=== PATIENT | female | born 1955 | race Caucasian/White ===

== ENCOUNTER 2022-04-27 06:14 | Day surgery (SDC) | payer OTHER, SELFPAY ==
[2022-04-27 06:45] VITALS: BP 186/72; PULSE 62; RESP 18; TEMP 36.1; O2SAT 97
[2022-04-27 06:46] VITALS: BMI 43.7
[2022-04-27] MEDS: LACTATED RINGERS 1000 ML 1,000 ML 35 ML IV (07:03)
--- NOTE | 2022-04-27 07:17 | P.GSCN_ITS ---
History of Present Illness Consult details Consult date: 04/27/22 Narrative: 66-year-old female presents for discussions of Port-A-Cath placement. Patient recently underwent a robotic assisted hysterectomy with salpingo-oophorectomy for endometrial cancer. She was found to have metastases to lymph nodes and chemotherapy was recommended. Patient presents today for discussion of Port-A-Cath placement. Patient denies any procedures on her neck. She denies any open sores or rashes. Her surgical incisions are healing well. Review of Systems Narrative: General: no fevers HENT: no problems swallowing CV: no shortness of breath Resp: no cough GI: No nausea, vomiting, abdominal pain Skin: no new rashes Musculoskeletal: no back pain Neuro: no muscle weakness Psyche: no depression, no anxiety PFSH PFSH Medical History (Updated 04/27/22 @ 07:21 by Demetris Armijo MD) Colonoscopy planned HTN (hypertension) Surgical History History of bilateral salpingo-oophorectomy History of dilation and curettage History of robot-assisted laparoscopic hysterectomy Social History (Updated 04/27/22 @ 07:20 by Demetris Armijo MD) Narrative: 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 Smoking Status: Former smoker What tobacco products do you use: cigarettes Smoking quit date/years: >15 years ago Do you use any of these nicotine containing products: None How often do you have a drink containing alcohol: monthly or less How many standard drinks containing alcohol do you have on a typical day: 1 or 2 How often do you have six or more drinks on one occasion: Never AUDIT-C Alcohol total score: 1 Non-prescribed substance use: denies use Caffeine: Yes Meds Home Medications and Allergies Home Medications Medication Instructions Recorded Confirmed Type acetaminophen 650 mg 650 mg PO Q8H PRN 04/27/22 04/27/22 History tablet,extended release lisinopril 20 mg tablet mg DAILY 04/27/22 History sulfasalazine 500 mg 1 g PO DAILY 04/27/22 04/27/22 History tablet,delayed release verapamil 120 mg 24 hr mg PO 04/27/22 History capsule,extended release Allergies Allergy/AdvReac Type Severity Reaction Status Date / Time No Known Allergies Allergy Unverified 04/27/22 06:28 Exam Narrative: Exam Narrative: General appearance: Alert, cooperative, and in no distress Neck: No surgical incisions or other scars noted in the neck. No open sores. Pulmonary: Chest symmetric, lungs clear bilaterally Cardiovascular Heart: Regular rate and rhythm, S1, S2, no murmurs/rubs/gallops Gastrointestinal Abdominal: soft, not tender, not distended, laparoscopic incisions are hea ling well with no surrounding erythema. Skin: Normal skin color, texture, and turgor. No rashes or lesions. Psychiatric: Alert, cooperative, normal affect. Const: Vital Signs, click to edit/add: Vital Signs - 24 hr 04/27/22 06:45 Temperature 97 F L Pulse Rate 62 Respiratory Rate 18 Blood Pressure 186/72 H Pulse Oximetry 97 Results Labs Labs: All other labs normal. Assessment and Plan Assessment and plan (1) Malignant neoplasm of endometrium metastatic to intra-abdominal lymph node: Status: Acute Plan 66-year-old female with metastatic endometrial cancer presents for Port-A-Cath placement. I discussed with the patient the procedure of Port-A-Cath placement. The risks of the procedure including infection, bleeding, pneumothorax, and exposure to COVID-19 were all discussed. Patient has no contraindications to this procedure today. We will proceed as scheduled.
[2022-04-27] MEDS: CEFAZOLIN 2 GM INJ IVP (07:50)
--- NOTE | 2022-04-27 07:57 | CRLHL7_ITS ---
For Patients: As a result of the Century Cures Act, medical imaging exams and procedure reports are released immediately into your electronic medical record. You may view this report before your referring provider. If you have questions, please contact your health care provider. Indication: Port placement Technique: Two fluoroscopic images of the chest. Fluoroscopic time 38.7 seconds. IMPRESSION: Fluoroscopic guidance for Port-A-Cath placement. Dictated by Jarad Blackwell MD @ 04/27/2022 9:17:21 AM (Electronically Signed)
[2022-04-27] MEDS: HEPARIN 500 UNIT/5 ML SYRINGE IVF (08:15)
[2022-04-27] MEDS: BUPIVACAINE 0.25% 30 ML INJECTION (08:15)
[2022-04-27 08:29] VITALS: BP 128/54; PULSE 58; RESP 16; TEMP 36.1; O2SAT 96
--- NOTE | 2022-04-27 08:32 | W.ANESCHARGE ---
Anesthesia Charges Start Date/Time Anesthesia Start Date: 04/27/22 Anesthesia Start Time: 07:41 Stop Date/Time Anesthesia Stop Date: 04/27/22 Anesthesia Stop Time: 08:28 Summary Emergency: No
--- NOTE | 2022-04-27 08:37 | CRLHL7_ITS ---
For Patients: As a result of the Century Cures Act, medical imaging exams and procedure reports are released immediately into your electronic medical record. You may view this report before your referring provider. If you have questions, please contact your health care provider. INDICATION: Port-A-Cath placement TECHNIQUE: Chest 1 view COMPARISON: None FINDINGS: Right internal jugular approach Port-A-Cath is present with the tip in the mid SVC. No pneumothorax. No dense consolidation. No pleural effusion. Cardiac silhouette upper limits normal. IMPRESSION: Placement of Port-A-Cath. No pneumothorax. Dictated by Jarad Blackwell MD @ 04/27/2022 9:18:16 AM (Electronically Signed)
--- NOTE | 2022-04-27 08:39 | P.GSOP_ITS ---
Operative Note Date of procedure: 04/27/22 Type of Procedure: 1. Right internal jugular Port-A-Cath placement under ultrasound and fluoroscopy guidance. Procedure Description: After discussing the risks and benefits of the procedure, the patient signed informed consent.? The operative site was marked and the patient was brought to the operating room and placed on the operating table in supine position.? Care was taken to pad the patient's pressure points.?? The patient was then sedated by anesthesia.?? The operative site was then prepped and draped in the usual sterile fashion.? A time-out was then performed. Ultrasound was brought on to the field and the right internal jugular vein was assessed. This was found to be large and easily compressible. The base of the neck directly overlying the internal jugular vein was then anesthetized with 1% lidocaine and 0.25% Marcaine mixture, and an introducer needle was inserted into the internal jugular vein using ultrasound guidance. Entry into the vein was confirmed by the presence of dark, nonpulsatile blood. A guide wire was advanced through the needle. The introducer needle was removed, leaving the wire in place. Fluoroscopy was brought onto the field and used to confirm the passage of the wire through the superior vena cava and into the inferior vena cava. Lidocaine was then used to infiltrate the port skin site, along with the proposed tunneling tract. A 3 cm incision was made at the site of the port pocket and subcutaneous tissue was dissected down using electrocautery. Subcutaneous pocket was created with blunt dissection and electrocautery. The catheter was advanced through the subcutaneous tissue using a tunneling trocar, exiting the incision at the base of the neck. The trocar was then disconnected. Fluoroscopy was again brought on to the field and the internal jugular vein and adjacent subcutaneous tissue was dilated with a pre-split introducer sheath in place. The wire was removed and the catheter was inserted into the introducer sheath. As the catheter was advanced, the sheath was split and divided, removing the sheath as the catheter was advanced into place. Fluoroscopy was again brought on to the field and the catheter position was examined. The entire course of the catheter was then viewed, and catheter was pulled back under direct visualization to ensure that the tip is in the SVC. The port was connected to the catheter tip and placed into previously created pocket. Prolene was used to place anchoring port sutures and the port was then secured in the pocket. The flow through the catheter was checked with a syringe, and found to be exce llent. The incision at the base of the neck was then closed with a single interrupted 4-0 monocryl stitch and dressed with a Steri-Strip and a sterile bandage. Subdermal layer was re-approximated with interrupted 3-0 vicryl stitches and skin over the port was closed with 4-0 monocryl using subcuticular stitch. Graff needle was inserted through the skin into the port and the port was flushed with heparinized saline. The needle was then removed. Steri strips, sterile 2x2 and Tegaderm was applied over the incision. The patient was then roused and brought to same day surgery in satisfactory con dition. Sponge and needle counts were correct at the end of the procedure. Post procedure CXR was ordered to be done in same day surgery. ? Findings: Right internal jugular vein was easily compressible. Port-a-cath placement went without difficulties. Anesthesia: MAC and local Surgeon: Demetris Armijo MD Estimated blood loss (mL): 10 Condition: stable Disposition: same day
[2022-04-27 08:45] VITALS: BP 137/58; PULSE 54; RESP 16; O2SAT 96
[2022-04-27 09:00] VITALS: BP 146/56; PULSE 56; RESP 16; O2SAT 96
[2022-04-27 09:15] VITALS: BP 162/61; PULSE 52; RESP 16; TEMP 36.1; O2SAT 97
== END 2022-04-27 09:45 | disposition home or self-care (01) ==
PROVIDERS: PCP Family Medicine; Visit Provider Surgery
PROC: (CPT 36561; principal; 2022-04-27 07:30)
DX: Z45.2 Encounter for adjustment and management of vascular access device (principal); C54.1 Malignant neoplasm of endometrium; C77.2 Secondary and unspecified malignant neoplasm of intra-abdominal lymph nodes
CPT/HCPCS: 36561; 00532; 71045; C1788; J0690; J1642; J2250; J2405; J2704; J3010; J3490; J7120

== ENCOUNTER 2022-06-07 11:10 | Emergency (ER) | payer OTHER, SELFPAY ==
[2022-06-07] VITALS (8 sets, daily range): BP systolic 109–164; BP diastolic 61–80; PULSE 60–79; RESP 18; TEMP 36; O2SAT 94–99; BMI 43.3
--- NOTE | 2022-06-07 11:48 | ED.DIZZY ---
HPI - Dizziness General Chief Complaint: Dizziness/Vertigo Stated Complaint: Post chemo dizziness Time Seen by Provider: 06/07/22 11:17 History of Present Illness HPI Narrative: This 66-year-old female comes in reporting some vertigo symptoms that occurred this morning. These symptoms were worse with certain movements and completely resolved when remaining still. Currently she is not feeling any vertigo symptoms. She did not have any associated nausea or vomiting. She does not report any neurologic deficits. She does not have any weakness. She does also reports some lightheadedness and is wondering what her hemoglobin is currently. She is undergoing chemotherapy for stage III endometrial cancer. She had her last chemo recently. This was her 2nd dose. She does report some diarrhea since the last treatment. She does not report any pain. Related Data Home Medications Medication Instructions Recorded Confirmed acetaminophen 650 mg 650 mg PO Q8H PRN 04/27/22 04/27/22 tablet,extended release lisinopril 20 mg tablet 20 mg PO DAILY 04/27/22 04/27/22 sulfasalazine 500 mg 1 g PO DAILY 04/27/22 04/27/22 tablet,delayed release verapamil 120 mg 24 hr 120 mg PO DAILY 04/27/22 04/27/22 capsule,extended release Allergies Allergy/AdvReac Type Severity Reaction Status Date / Time No Known Allergies Allergy Unverified 04/27/22 06:28 Review of Systems Status of ROS: Reports: 10 or more systems reviewed and unremarkable except as noted in History and below Narrative: Constitutional: No fevers, no weight gain or loss. Eyes: No discharge. No vision changes. HENT: No congestion, no sore throat, no ear pain. Cardiovascular: No chest pain, no palpitations. Respiratory: No shortness of breath, no wheezes, no cough. Gastrointestinal: No abdominal pain, no vomiting, no diarrhea. Genitourinary: No dysuria, no hematuria. Musculoskeletal: Normal range of motion. Skin: No rashes, no pruritis. Neurological: No weakness, sensory change, speech change. Vertigo symptoms that have now completely resolved. Endo/Heme/Allergies: No bruising or bleeding. No polydipsia. Pysch: no suicidality, no anxiety, no insomnia. All other systems reviewed and are negative. 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 Smoking Status: Former smoker What tobacco products do you use: cigarettes Smoking quit date/years: >15 years ago Do you use any of these nicotine containing products: None How often do you have a drink containing alcohol: monthly or less How many standard drinks containing alcohol do you have on a typical day: 1 or 2 How often do you have six or more drinks on one occasion: Never AUDIT-C Alcohol total score: 1 Non-prescribed substance use: denies use Caffeine: Yes Exam Narrative: Exam Narrative: Constitutional: Well-developed, well-nourished, no acute distress. HEENT: Normocephalic, atraumatic. Neck: Normal range of motion. Nontender. Supple. Heart: Regular. No murmurs. Normal rate. Intact distal pulses. Lungs: Clear to auscultation. No chest discomfort. No wheezes, rhonchi, or rales. Abdomen: Normal bowel sounds. Nontender. No rebound tenderness. Genitalia: Deferred. Back: No midline tenderness. Normal range of motion. Extremities: Normal range of motion. No injury. Skin: Intact. No rash. Warm. No erythema or pallor. Neurologic: No altered sensation. No weakness. Alert and oriented. No facial asymmetry. Tongue is midline. [id number] is normal. No pronator drift. Silk Examiner strength is equal bilaterally. Heel to carballo is normal bilaterally. Psychiatric: No suicidality. No anxiety or depression. No insomnia. Nursing notes and vitals signs are reviewed. Const: Vital Signs, click to edit/add: Vital Signs - 24 hr 06/07/22 11:20 06/07/22 11:15 06/07/22 11:30 Temperature 96.8 F L Pulse Rate Pulse Rate [Left P ulse Oximeter] 79 77 60 Respiratory Rate 18 Blood Pressure Blood Pressure [Le ft Forearm] 134/67 164/76 H 113/61 Pulse Oximetry 99 97 97 Oxygen Delivery Me thod Room Air Room Air Room Air 06/07/22 12:05 06/07/22 12:30 06/07/22 12:43 Temperature Pulse Rate 64 66 Pulse Rate [Left P ulse Oximeter] 74 Respiratory Rate Blood Pressure 111/62 Blood Pressure [Le ft Forearm] 109/78 Pulse Oximetry 97 94 98 Oxygen Delivery Me thod Room Air Course Vital Signs Vital signs: Initial Vital Signs Pulse Rate 77 06/07/22 11:15 Blood Pressure 164/76 H 06/07/22 11:15 Blood Pressure Mean 105 06/07/22 11:15 Blood Pressure Position Supine 06/07/22 11:15 Pulse Oximetry 97 06/07/22 11:15 Oxygen Delivery Method 06/07/22 11:15 Vital Signs Pulse Rate 77 06/07/22 11:15 Blood Pressure 164/76 H 06/07/22 11:15 Pulse Oximetry 97 06/07/22 11:15 Oxygen Delivery Method 06/07/22 11:15 Temperature 96.8 F L 06/07/22 11:20 Pulse Rate 66 06/07/22 12:43 Respiratory Rate 18 06/07/22 11:20 Blood Pressure 111/62 06/07/22 12:43 Pulse Oximetry 98 06/07/22 12:43 Oxygen Delivery Method 06/07/22 12:05 MDM - Dizziness MDM Narrative Medical decision making narrative: This patient comes in reporting some vertigo symptoms which have resolved. She also has had some brief episodes of lightheadedness over the last several days or more. She has had her 2nd course of chemotherapy with 4 more to come. She had labs drawn and these returned with a hemoglobin of 9.8. Her last hemoglobin checked at the oncology clinic was at 10.6. Her white count is in normal range. She also has a sodium of 128. She states that she is drinking lots of fluids and reports that her urine is rather clear. She is not on any sodium wasting medications but does take lisinopril and verapamil. It is noted that her blood pressure measured between 90 and 110 for systolic value. This may be contributing to some fatigue and lightheadedness for her. I advised her to follow-up with her primary physician to review her blood pressure medications. She may wish to hold 1 her or both of these and record her blood pressure for additional comparison value for her primary physician. In any event she is okay to return home to continue current plans otherwise. Lab Data Labs: Lab Results 06/07/22 06/07/22 Range/Units 12:07 12:07 WBC 9.83 (4.50-11.00) K/uL RBC 3.08 L (4.00-5.20) m/uL Hgb 9.8 L (12.0-16.0) gm/dL Hct 28.4 L (33.0-51.0) % MCV 92 (80-100) fL MCH 32 (26-34) pg MCHC 35 (32-36) gm/dL RDW Coeff of Michael 13.3 (11.5-15.5) % Plt Count 147 (140-440) K/uL Neut % (Auto) 53.5 (42.0-72.0) % Lymph % (Auto) 20.4 (20-44) % [place] % (Auto) 17.3 H (0.0-11.0) % Eos % (Auto) 0.6 (0.0-7.0) % Baso % (Auto) 0.0 (0.0-3.0) % Neut # (Auto) 5.25 (1.7-7.0) K/uL Lymph # (Auto) 2.01 (0.90-2.90) K/uL [place] # (Auto) 1.70 H (0.00-0.90) K/UL Eos # (Auto) 0.06 (0.00-0.50) K/uL Baso # (Auto) 0.00 (0.00-0.30) K/uL Abs Immat Gran (auto) 0.81 H (0.00-0.30) K/uL Diff Slide Review Acceptable Review (Acceptable) Sodium 128 L (135-149) mmol/L Potassium 3.6 (3.6-5.1) mmol/L Chloride 94 L (96-114) mmol/L Carbon Dioxide 25 (20-32) mmol/L BUN 18 (7-30) mg/dL Creatinine 0.7 (0.5-1.5) mg/dL Estimated Creat Clear 48.45 Estimated GFR 94 ml/min Glucose 119 H (60-115) mg/dL Calcium 8.7 (8.4-10.6) mg/dL Total Bilirubin 0.3 (0.1-1.5) mg/dL Direct Bilirubin 0.3 (0.0-0.5) mg/dL AST 32 (12-35) U/L ALT 38 H (4-35) U/L Alkaline Phosphatase 92 (40-150) U/L Total Protein 7.1 (6.0-8.3) g/dL Albumin 4.1 (3.3-5.0) g/dL Discharge Plan Discharge Clinical Impression: Acute vestibular neuronitis Condition: Improved Instructions: Vertigo (ED) Additional Instructions: Follow-up with primary physician. Activity as tolerated. Consider holding 1 or both of the blood pressure medicines until seen by primary physician within a week or so. Measure blood pressure readings during this time for additional information for dosing of antihypertensives. Prescriptions: No Action lisinopril 20 mg tablet 20 mg PO DAILY verapamil 120 mg capsule,ext rel. pellets 24 hr 120 mg PO DAILY sulfasalazine 500 mg tablet,delayed release (DR/EC) 1 g PO DAILY acetaminophen 650 mg tablet extended release 650 mg PO Q8H PRN Follow Up/Referrals: Yann Steinberg MD [Primary Care Provider] - Stand Alone Forms: [facility] Info Instructions
[2022-06-07 12:12] LABS: Eosinophils Absolute Auto 0.06 K/uL (0.00-0.50); Eosinophils Percent Auto 0.6 % (0.0-7.0); Hematocrit 28.4 % (33.0-51.0); Hemoglobin* 9.8 gm/dL (12.0-16.0); Immature Granulocytes Abs Auto 0.81 K/uL (0.00-0.30); Lymphocytes Absolute Auto 2.01 K/uL (0.90-2.90); Lymphocytes Percent Auto 20.4 % (20-44); Mean Corpuscular HGB Conc 35 gm/dL (32-36); Mean Corpuscular Hemoglobin 32 pg (26-34); Mean Corpuscular Volume 92 fL (80-100); Monocytes Percent Auto 17.3 % (0.0-11.0); Neutrophils Absolute Auto 5.25 K/uL (1.7-7.0); Neutrophils Percent Auto 53.5 % (42.0-72.0); Platelet Count* 147 K/uL (140-440); RDW Coefficient of Variation % 13.3 % (11.5-15.5); Red Blood Count 3.08 m/uL (4.00-5.20); White Blood Count* 9.83 K/uL (4.50-11.00)
[2022-06-07 12:25] LABS: Albumin* 4.1 g/dL (3.3-5.0)
[2022-06-07 12:26] LABS: Chloride* 94 mmol/L (96-114); Potassium* 3.6 mmol/L (3.6-5.1); Sodium* 128 mmol/L (135-149)
[2022-06-07 12:28] LABS: Creatinine* 0.7 mg/dL (0.5-1.5); Est. Creatinine Clearance* 48.45; Estimated Glomerular Filt Rate 94 ml/min
[2022-06-07 12:29] LABS: Alanine Aminotransferase* 38 U/L (4-35); Alkaline Phosphatase* 92 U/L (40-150); Aspartate Amino Transferase* 32 U/L (12-35); Bilirubin Direct* 0.3 mg/dL (0.0-0.5); Bilirubin Total* 0.3 mg/dL (0.1-1.5); Blood Urea Nitrogen* 18 mg/dL (7-30); Carbon Dioxide* 25 mmol/L (20-32); Glucose* 119 mg/dL (60-115); Total Protein* 7.1 g/dL (6.0-8.3)
[2022-06-07 12:30] LABS: Calcium* 8.7 mg/dL (8.4-10.6)
[2022-06-07 12:32] LABS: Slide Review Reflex Yes
[2022-06-07 12:34] LABS: Slide Review Acceptable Review (Acceptable)
== END 2022-06-07 14:21 | disposition home or self-care (01) ==
PROVIDERS: Emergency Provider Emergency Medicine Emergency Medical Services; PCP Family Medicine
DX: H81.20 Vestibular neuronitis, unspecified ear (principal); C54.1 Malignant neoplasm of endometrium
CPT/HCPCS: 36415; 80048; 80076; 85025; 99284; A0425; A0427

== ENCOUNTER 2022-08-11 08:30 | Outpatient (RCR) | payer OTHER, SELFPAY ==
[2022-07-07 09:19] VITALS: BP 151/85; PULSE 68; RESP 16; TEMP 36.2; O2SAT 96
[2022-07-07 10:58] VITALS: BP 142/58; RESP 16; TEMP 36.2; O2SAT 98
[2022-07-07 11:17] VITALS: BP 143/71; PULSE 60; RESP 18; TEMP 36.7; O2SAT 97
[2022-07-07 12:07] VITALS: BP 125/65; PULSE 64; RESP 18; TEMP 36.6; O2SAT 96
[2022-07-07 13:25] VITALS: BP 148/82; PULSE 69; RESP 16; TEMP 36.8; O2SAT 96
[2022-07-07 13:55] VITALS: BP 126/79; PULSE 68; RESP 18; TEMP 36.9; O2SAT 98
[2022-07-07] MEDS: SODIUM CHLORIDE 0.9 % (FLUSH) 10 ML SYRINGE IVF (15:02)
[2022-07-07] MEDS: HEPARIN 500 UNIT/5 ML SYRINGE IVF (15:02)
[2022-08-11] VITALS (8 sets, daily range): BP systolic 110–132; BP diastolic 56–79; PULSE 45–106; RESP 18; TEMP 36.2–36.8; O2SAT 97–99
[2022-08-11] MEDS: HEPARIN 500 UNIT/5 ML SYRINGE IVF (15:23)
[2022-08-11] MEDS: SODIUM CHLORIDE 0.9 % (FLUSH) 10 ML SYRINGE IVF ×2 (15:23)
== END 2023-01-03 23:59 | disposition home or self-care (01) ==
LOC: CCIC 08:30
PROVIDERS: PCP Family Medicine; Referring Provider Family Medicine; Visit Provider Clinical Nurse Specialist
DX: C54.1 Malignant neoplasm of endometrium (principal)
CPT/HCPCS: 36415; 36430; 36591; 86850; 86900; 86901; 86922; J1642; P9016